=== PATIENT | female | born 1990 | race African-American/Black ===

== ENCOUNTER 2020-12-28 07:42 | Inpatient (IN) | payer OTHER ==
[2020-12-28 08:31] LABS: HCT 43.1 % (37.0-47.0); HGB 14.1 g/dl (12.5-16.0); MCH 28.8 pg (25.0-31.0); MCHC 32.7 g/dL (32.0-36.0); MPV 12.8 fL (6.0-9.5); RBC 4.9 M/uL (4.20-5.40); RDW 14.5 % (11.5-14.0); WBC 14.5 K/uL (4.0-10.5)
[2020-12-28 11:08] LABS: BILIRUBIN NEGATIVE (NEGATIVE); BLOOD 1+ Ery/uL (NEGATIVE); CLARITY CLEAR (CLEAR); COLOR YELLOW (YELLOW); GLUCOSE (U) NORMAL (NORMAL); LEUKOCYTES TRACE Leu/uL (NEGATIVE); NITRITE NEGATIVE (NEGATIVE); PROTEIN NEGATIVE (NEGATIVE); UROBILINOGEN 0.2 mg/dL (0.2-1.0)
[2020-12-28 11:22] LABS: BACTERIA TRACE; URINARY WBC RARE
[2020-12-28 12:41] LABS: ALBUMIN 3.1 g/dL (3.4-5.0); BILIRUBIN - TOTAL 0.2 mg/dL (0.2-1.0); BUN/CREAT RATIO (CALC) 12.5 RATIO; CREATININE 0.8 mg/dL (0.51-0.95); GLOBULIN (CALCULATION) 3.7 g/dL; POTASSIUM 4.2 mmol/L (3.5-5.1); TOTAL PROTEIN 6.8 g/dL (6.4-8.2)
[2020-12-28 16:35] LABS: AMPHETAMINES NEGATIVE (NEGATIVE); BARBITURATES NEGATIVE (NEGATIVE); ECSTASY (MDMA) NEGATIVE (NEGATIVE); MARIJUANA (THC) NEGATIVE (NEGATIVE); METHADONE NEGATIVE (NEGATIVE); OPIATES NEGATIVE (NEGATIVE); OXYCODONE NEGATIVE (NEGATIVE)
[2020-12-29 05:57] LABS: HCT 39.8 % (37.0-47.0); HGB 12.7 g/dl (12.5-16.0); MCH 28.9 pg (25.0-31.0); MCHC 31.9 g/dL (32.0-36.0); MCV 90.5 fL (78.0-100.0); MPV 13.3 fL (6.0-9.5); RBC 4.4 M/uL (4.20-5.40); RDW 14.6 % (11.5-14.0); WBC 12.7 K/uL (4.0-10.5)
== END 2020-12-30 14:32 | disposition home or self-care (01) | DRG 787 ==
LOC: FOB 07:42
PROVIDERS: ADMIT Obstetrics & Gynecology
PROC: 4A1HX4Z Monitoring of Products of Conception, Cardiac Electrical Activity, External Approach (ICD-10-PCS; 2020-12-28)
PROC: 10D00Z1 Extraction of Products of Conception, Low, Open Approach (ICD-10-PCS; principal; 2020-12-28 09:00)
PROC: 3E0234Z Introduction of Serum, Toxoid and Vaccine into Muscle, Percutaneous Approach (ICD-10-PCS; 2020-12-29)
DX: O34.211 Maternal care for low transverse scar from previous cesarean delivery (principal); O36.0930 Maternal care for other rhesus isoimmunization, third trimester, not applicable or unspecified; O10.913 Unspecified pre-existing hypertension complicating pregnancy, third trimester; Z20.822 Contact with and (suspected) exposure to COVID-19; N85.8 Other specified noninflammatory disorders of uterus; O99.334 Smoking (tobacco) complicating childbirth; F17.200 Nicotine dependence, unspecified, uncomplicated; O99.214 Obesity complicating childbirth; O36.1990 Maternal care for other isoimmunization, unspecified trimester, not applicable or unspecified; E66.01 Morbid (severe) obesity due to excess calories; R82.5 Elevated urine levels of drugs, medicaments and biological substances; Z3A.39 39 weeks gestation of pregnancy; Z37.0 Single live birth; Z88.5 Allergy status to narcotic agent; Z83.3 Family history of diabetes mellitus; O89.4 Spinal and epidural anesthesia-induced headache during the puerperium; O99.02 Anemia complicating childbirth; D64.9 Anemia, unspecified; R94.31 Abnormal electrocardiogram [ECG] [EKG]
CPT/HCPCS: 36415; 80053; 80305; 81001; 84484; 85461; 86850; 86900; 86901; 93005; J0456; J0690; J1200; J1885; J2274; J2790; J3010; J7050; J7120